=== PATIENT | male | born 1995 | race Two or more races ===

== ENCOUNTER 2017-03-10 15:20 | Emergency (ER) | payer OTHER ==
[2017-03-10] MEDS ORDERED: LORazepam 1 MG TAB ONE (15:28)
[2017-03-10] MEDS ORDERED: LORazepam 1 MG TAB PO ONE (15:37)
--- NOTE | 2017-03-10 16:58 | EDPHY ---
H & P Stated Complaint: PANIC ATTACK Time Seen by Provider: 03/10/17 15:23 HPI/ROS: Chief Complaint: Panic attack HPI: 22-year-old male with a past medical history of anxiety is presenting complaining of a panic attack today. Patient awoke feeling very anxious and has been getting progressively worse. He has been breathing fast and is getting cramping in his hands numbness around his mouth. He has had multiple episodes in the past has been seen in the emergency department before for this. He has been having increasing stressors with school. He has been prescribed Lexapro in the past but stopped taking it after 2 months because he did not like how it made him feel. This was over a year ago. He has since not followed up for any other treatments. He denies suicidal thoughts. Is not hearing voices. Denies any recent illness. No fevers or chills. No chest pain shortness of breath. He does use marijuana daily both recreationally and to treat his anxiety. ROS: 10 point Review of Systems is negative except as noted in the HPI. PMH: Anxiety Medications: None Allergies: None Social History: Positive smoking, no alcohol, daily marijuana Family History: non-contributory Physical Exam: Gen: Awake, Alert, anxious, hyperventilating, carpal pedal spasm HEENT: Nose: no rhinorrhea Eyes: PERRLA, EOMI Mouth: Moist mucosa Neck: Supple, no JVD Chest: nontender, lungs clear to auscultation Heart: S1, S2 normal, no murmur Abd: Soft, non-tender, no guarding Back: no CVA tenderness, no midline tenderness Ext: no edema, non-tender Skin: no rash Neuro: CN II-XII intact, Sensation grossly intact, Strength 5/5 in bilateral upper and lower extremities - Personal History Current Tetanus/Diphtheria Vaccine: Yes - Medical/Surgical History Hx Asthma: No Hx Chronic Respiratory Disease: No Hx Diabetes: No Hx Cardiac Disease: No Hx Renal Disease: No Hx Cirrhosis: No Hx Alcoholism: No Hx HIV/AIDS: No Hx Splenectomy or Spleen Trauma: No Other PMH: PMH: GERD. PSH: none - Social History Smoking Status: Heavy smoker Constitutional: Initial Vital Signs Temperature (C) 36.6 C 03/10/17 15:26 Heart Rate 79 03/10/17 15:26 Respiratory Rate 30 H 03/10/17 15:26 Blood Pressure 106/81 H 03/10/17 15:26 O2 Sat (%) 100 03/10/17 15:26 O2 Delivery Mode Room Air Allergies/Adverse Reactions: No Known Allergies Allergy (Verified 03/23/16 11:38) Home Medications: Medication Instructions Recorded Ondansetron Odt [Zofran Odt] 4 mg PO Q4PRN #4 tab 03/23/16 LORazepam [Ativan] 1 mg PO Q6-8PRN PRN #10 tab 07/12/16 Ondansetron Odt [Zofran Odt] 4 mg PO Q4PRN #8 tab 07/12/16 Medical Decision Making ED Course/Re-evaluation: Patient is feeling much better after Ativan. He is still adeline for safety. I have given referrals per both [facility] and [facility]. He will return for any concerns. - Data Points Medications Given: Discontinued Medications Lorazepam (Ativan) 2 mg PO ONCE ONE Stop: 03/10/17 15:38 Last Admin: 03/10/17 15:40 Dose: 2 mg Departure - Departure Disposition: Home, Routine, Self-Care Clinical Impression: Anxiety Condition: Good Instructions: Anxiety (ED) Additional Instructions: Follow up with student health or with [facility] for further treatment of your anxiety. Try to decrease your marijuana use. Referrals: [facility] [Outside] - As per Instructions [facility] [Outside] - As per Instructions
[2017-03-10 17:18] VITALS: BP 130/78; PULSE 80; RESP 14; TEMP 98.4; O2SAT 94
== END 2017-03-10 17:17 | disposition home or self-care (01) ==
DX: F41.9 Anxiety disorder, unspecified (principal); F17.200 Nicotine dependence, unspecified, uncomplicated

== ENCOUNTER 2017-05-12 10:59 | Emergency (ER) | payer OTHER ==
[2017-05-12 11:06] VITALS: TEMP 97.9
--- NOTE | 2017-05-12 11:16 | EDPHY ---
H & P Time Seen by Provider: 05/12/17 11:08 HPI/ROS: CHIEF COMPLAINT: Nausea vomiting anxiety HISTORY OF PRESENT ILLNESS: This is a 22-year-old male presenting to the emergency department with his friends. Patient states he has been using an increased amount of marijuana over the past few days due to his anxiety. Patient states starting having increased anxiety around 6 o'clock this morning after smoking marijuana then nausea vomiting since then. Patient has been seen on multiple occasions for same problem. Denies any other drugs REVIEW OF SYSTEMS: Constitutional: No fever, no chills. Eyes: No discharge. ENT: No sore throat. Cardiovascular: No chest pain, no palpitations. Respiratory: No cough, no shortness of breath. Gastrointestinal: Abdominal cramping, nausea and vomiting Genitourinary: No hematuria. Musculoskeletal: No back pain. Skin: No rashes. Neurological: No headache. Anxious Smoking Status: Heavy smoker Physical Exam: General Appearance: Alert, no distress HEENT: Pupils equal and round no pallor or injection. Mucous membranes moist. Respiratory: There are no retractions, lungs are clear to auscultation. Cardiovascular: Regular rate and rhythm. Gastrointestinal: Abdomen is soft and nontender, no masses, bowel sounds normal. No active vomiting Neurological: No focal deficits answering questions appropriately Skin: Warm and dry, no rashes. No diaphoresis Musculoskeletal: Neck is supple nontender. Extremities: symmetrical, full range of motion. Psychiatric: Patient is oriented X 3, anxious Constitutional: Initial Vital Signs Temperature (C) 36.6 C 05/12/17 10:59 Heart Rate 79 05/12/17 10:59 Respiratory Rate 26 H 05/12/17 10:59 O2 Sat (%) 92 05/12/17 10:59 O2 Delivery Mode Room Air Allergies/Adverse Reactions: No Known Allergies Allergy (Verified 03/23/16 11:38) Home Medications: Medication Instructions Recorded Ondansetron Odt [Zofran Odt] 4 mg PO Q4PRN #4 tab 03/23/16 LORazepam [Ativan] 1 mg PO Q6-8PRN PRN #10 tab 07/12/16 Ondansetron Odt [Zofran Odt] 4 mg PO Q4PRN #8 tab 07/12/16 Medical Decision Making ED Course/Re-evaluation: Discussed ED plan of care: IV normal saline, IV Zofran, IV Ativan. Reviewed previous records will re-evaluate patient. Also discussed with patient that he needs to stop smoking marijuana. Evaluation with a therapist would be beneficial for him due to his anxiety 1215: Patient re-evaluation---> no nausea vomiting, patient states he does still feeling anxious would like more Ativan 1315: Patient re-evaluation---> NAD, no nausea vomiting, decrease anxiety per patient. Patient states "I'm ready to go home" also discussed with patient the emergency department should not be utilized to control her anxiety. There are counselors and therapy which can be located at [facility] for you to utilize Differential Diagnosis: Other differential diagnosis considered but not limited to AMS due to drug intoxication, hyperemesis due to cannabinoid overuse, panic attack and gastroenteritis - Data Points Medications Given: Discontinued Medications Sodium Chloride (Ns) 1,000 mls @ 0 mls/hr IV ONCE ONE PRN Reason: Wide Open Stop: 05/12/17 11:19 Last Admin: 05/12/17 11:27 Dose: 1,000 mls Sodium Chloride (Ns) 1,000 mls @ 0 mls/hr IV ONCE ONE PRN Reason: Wide Open Stop: 05/12/17 12:08 Last Admin: 05/12/17 12:08 Dose: 1,000 mls Lorazepam (Ativan Injection) 1 mg IVP EDNOW ONE Stop: 05/12/17 11:20 Last Admin: 05/12/17 11:28 Dose: 1 mg Lorazepam (Ativan Injection) 1 mg IVP EDNOW ONE Stop: 05/12/17 12:31 Last Admin: 05/12/17 12:40 Dose: 1 mg Ondansetron HCl (Zofran) 4 mg IVP EDNOW ONE Stop: 05/12/17 11:19 Last Admin: 05/12/17 11:27 Dose: 4 mg Departure - Departure Disposition: Home, Routine, Self-Care Clinical Impression: Generalized anxiety disorder Nausea & vomiting Qualifiers: Vomiting type: unspecified Vomiting Intractability: non-intractable Qualified Code(s): R11.2 - Nausea with vomiting, unspecified Condition: Good Instructions: Generalized Anxiety Disorder (ED), Acute Nausea and Vomiting (ED) Additional Instructions: 1. I have given you numbers for [facility] follow -up with them for evaluation for anxiety 2. Also discusse the emergency department should not be utilized for your continuous anxiety issues due to marijuana 3. I would also recommend talking with your parents, use family as support system Referrals: NONE *PRIMARY CARE P,. [Primary Care Provider] - As per Instructions [facility],. [Clinic] - As per Instructions [facility] [Clinic] - As per Instructions
[2017-05-12] MEDS ORDERED: ONDANSETRON 4 MG/2 ML VIAL IVP ONE (11:18)
[2017-05-12] MEDS ORDERED: NS 1,000 ML IV ONE ×2 (11:18→12:07)
[2017-05-12] MEDS ORDERED: LORazepam 2 MG/ML INJ IVP ONE ×2 (11:19→12:30)
[2017-05-12 13:31] VITALS: BP 109/63; PULSE 58; RESP 18; O2SAT 97
== END 2017-05-12 13:30 | disposition home or self-care (01) ==
DX: F41.9 Anxiety disorder, unspecified (principal); R11.2 Nausea with vomiting, unspecified; F17.200 Nicotine dependence, unspecified, uncomplicated
CPT/HCPCS: 96374; J2060; J2405

== ENCOUNTER 2017-07-17 13:22 | Emergency (ER) | payer OTHER ==
[2017-07-17 13:28] VITALS: TEMP 98.4
--- NOTE | 2017-07-17 13:34 | EDPHY ---
H & P Stated Complaint: N/V; feels anxious and numb;hx previous episodes (see visit hx ) Time Seen by Provider: 07/17/17 13:34 - Personal History Current Tetanus Diphtheria and Acellular Pertussis (TDAP): Yes - Medical/Surgical History Hx Asthma: No Hx Chronic Respiratory Disease: No Hx Diabetes: No Hx Cardiac Disease: No Hx Renal Disease: No Hx Cirrhosis: No Hx Alcoholism: No Hx HIV/AIDS: No Hx Splenectomy or Spleen Trauma: No Other PMH: PMH: GERD. anxiety - Social History Smoking Status: Current every day smoker Constitutional: Initial Vital Signs Temperature (C) 36.9 C 07/17/17 13:24 Heart Rate 56 L 07/17/17 13:24 Respiratory Rate 24 H 07/17/17 13:24 Blood Pressure 107/63 07/17/17 13:24 O2 Sat (%) 99 07/17/17 13:24 O2 Delivery Mode Room Air Allergies/Adverse Reactions: No Known Allergies Allergy (Verified 07/17/17 13:24) Home Medications: Medication Instructions Recorded NK [No Known Home Meds] 07/17/17 Medical Decision Making ED Course/Re-evaluation: CHIEF COMPLAINT: Anxiety, nausea, vomiting HISTORY OF PRESENT ILLNESS: The patient is a 22 y/o male who complains of anxiety accompanied with nausea and vomiting since 06:30 this morning, about 8 hours ago. He has a history of vomiting associated with anxiety, and has been evaluated as recently as 2 months ago for similar symptoms. He does not have a care plan for his anxiety and has not seen a psychiatrist. He was prescribed Lexapro, which he stopped taking after several weeks because it "made him feel crazy". He denies chest pain, paresthesias, weakness, incontinence or other pertinent symptoms. REVIEW OF SYSTEMS: A 10 point review of systems was performed and is negative with the exception of the elements mentioned in the history of present illness. PHYSICAL EXAM: HR, BP, O2 Sat, RR. Temp noted General Appearance: Alert, well hydrated, appropriate, and non-toxic appearing. Head: Atraumatic without scalp tenderness or obvious injury Eyes: Pupils equal, round, reactive to light and accommodation, EOMI, no trauma , no injection. Ears: Clear bilaterally, no perforation, normal landmarks Nose: Atraumatic, no rhinorrhea, clear. Throat: Mucus membranes moist. Neck: Supple, nontender, no lymphadenopathy. Respiratory: No retractions, no distress, no wheezes, and no accessory muscle use. Lungs are clear to auscultation bilaterally. Cardiovascular: Regular rate and rhythm, no murmurs, rubs, or gallops. Good capillary refill all extremities. Gastrointestinal: Abdomen is soft, nontender, non-distended, no masses, no rebound, no guarding, no peritoneal signs. Musculoskeletal: Normal active ROM of all extremities, atraumatic. Neurological: Alert, appropriate, and interactive. Non-focal neuro. Skin: No rashes, good turgor, no nodules on palpation. Past medical history: Anxiety, GERD Past surgical history: Denies Family history: Noncontributory Social history: Student at , lives in [place], smoker. Prior medical records reviewed including ED visit on 05/12/17 for vomiting. DIFFERENTIAL DIAGNOSIS: The differential diagnosis for the patient's nausea and vomiting included but was not limited to cyclic vomiting, psychogenic causes , marijuana abuse, gastroenteritis, gastritis, appendicitis, and medication side effect. MEDICAL DECISION MAKING: The patient is a 22 y/o male presenting with an 8 hour history of worsening anxiety accompanied with nausea and vomiting. He has not managed his anxiety and denies seeing a psychiatrist. His symptoms are consistent with cyclic vomiting syndrome. Plan for basic labs, urine tox, and symptomatic management. Plan on IV, 4mg IV Zofran, 1mg IV Ativan, 40mg IV Pepcid , and labs. Reassessed patient and discussed laboratory results. Lab results were unremarkable. I recommend he follows up with [facility] to control his anxiety. He will be given a prescription of Zofran to manage his nausea. He is comfortable with this plan. - Data Points Laboratory Results: Laboratory Results 07/17/17 13:45 07/17/17 13:45 07/17/17 07/17/17 13:45 13:45 WBC 15.57 10^3/uL H 10^3/uL (3.80-9.50) RBC 5.67 10^6/uL 10^6/uL (4.40-6.38) Hgb 17.8 g/dL H g/dL (13.7-17.5) Hct 47.9 % % (40.0-51.0) MCV 84.5 fL fL (81.5-99.8) MCH 31.4 pg pg (27.9-34.1) MCHC 37.2 g/dL H g/dL (32.4-36.7) RDW 11.6 % % (11.5-15.2) Plt Count 258 10^3/uL 10^3/uL (150-400) MPV 11.0 fL fL (8.7-11.7) Neut % (Auto) 85.8 % H % (39.3-74.2) Lymph % (Auto) 9.8 % L % (15.0-45.0) Cochran % (Auto) 3.5 % L % (4.5-13.0) Eos % (Auto) 0.1 % L % (0.6-7.6) Baso % (Auto) 0.4 % % (0.3-1.7) Nucleat RBC Rel Count 0.0 % % (0.0-0.2) Absolute Neuts (auto) 13.35 10^3/uL H 10^3/uL (1.70-6.50) Absolute Lymphs (auto) 1.53 10^3/uL 10^3/uL (1.00-3.00) Absolute Monos (auto) 0.55 10^3/uL 10^3/uL (0.30-0.80) Absolute Eos (auto) 0.01 10^3/uL L 10^3/uL (0.03-0.40) Absolute Basos (auto) 0.07 10^3/uL 10^3/uL (0.02-0.10) Absolute Nucleated RBC 0.00 10^3/uL 10^3/uL (0-0.01) Immature Gran % 0.4 % % (0.0-1.1) Immature Gran # 0.06 10^3/uL 10^3/uL (0.00-0.10) Sodium 141 mEq/L mEq/L (134-144) Potassium 4.2 mEq/L mEq/L (3.5-5.2) Chloride 105 mEq/L mEq/L (97-110) Carbon Dioxide 18 mEq/l L mEq/l (22-31) Anion Gap 18 mEq/L H mEq/L (8-16) BUN 16 mg/dL mg/dL (7-23) Creatinine 1.2 mg/dL mg/dL (0.7-1.3) Estimated GFR > 60 Glucose 132 mg/dL H mg/dL (70-100) Calcium 11.4 mg/dL H mg/dL (8.5-10.4) Phosphorus 1.1 mg/dL L mg/dL (2.5-4.5) Salicylates < 1.0 mg/dL L mg/dL (2.0-20.0) Acetaminophen < 10 mcg/mL L mcg/mL (10-30) Ethyl Alcohol < 10 mg/dL mg/dL (0-10) Medications Given: Discontinued Medications Famotidine (Pepcid) 40 mg IVP EDNOW ONE Stop: 07/17/17 13:44 Last Admin: 07/17/17 13:55 Dose: 40 mg Lorazepam (Ativan Injection) 1 mg IVP EDNOW ONE Stop: 07/17/17 13:44 Last Admin: 07/17/17 13:55 Dose: 1 mg Ondansetron HCl (Zofran) 4 mg IVP EDNOW ONE Stop: 07/17/17 13:44 Last Admin: 07/17/17 13:55 Dose: 4 mg Ondansetron HCl (Zofran Odt 4 Mg Prepack#2) 1 btl TAKEHOME EDNOW ONE Stop: 07/17/17 14:31 Last Admin: 07/17/17 14:41 Dose: 1 btl Departure - Departure Disposition: Home, Routine, Self-Care Clinical Impression: Anxiety Cyclical vomiting Qualifiers: Vomiting Intractability: unspecified Nausea presence: with nausea Qualified Code(s): G43.A0 - Cyclical vomiting, not intractable Condition: Good Instructions: Acute Nausea and Vomiting (ED), Anxiety (ED) Additional Instructions: 1. Take Zofran as prescribed for your nausea and vomiting. 2. Stop smoking marijuana, this is likely contributing to your nausea and vomiting. 3. Follow up with [facility], if you would like to seek help with your anxiety. 4. Follow up with the [facility] for unimproved symptoms in the next 3-5 days. 5. Return to the ED for fever, incontinence, chest pain, or other worsening symptoms. Referrals: NONE *PRIMARY CARE P,. [Primary Care Provider] - As per Instructions [facility] [Outside] - As per Instructions [facility],. [Clinic] - As per Instructions Report Scribed for: Vahe Bell Report Scribed by: Diane Beard Date of Report: 07/17/17 Time of Report: 14:40
[2017-07-17] MEDS ORDERED: FAMOTIDINE 20 MG/2 ML SDV IVP ONE (13:43)
[2017-07-17] MEDS ORDERED: LORazepam 2 MG/ML INJ IVP ONE (13:43)
[2017-07-17] MEDS ORDERED: ONDANSETRON 4 MG/2 ML VIAL IVP ONE (13:43)
[2017-07-17 13:58] LABS: % IMMATURE GRANULYOCYTES 0.4 % (0.0-1.1); ABSOLUTE IMMATURE GRANULOCYTES 0.06 10^3/uL (0.00-0.10); ADD DIFF? NO; ADD MORPH? NO; ADD SCAN? NO; ATYPICAL LYMPHOCYTE FLAG 0 (0-99); FRAGMENT RBC FLAG 0 (0-99); HEMATOCRIT 47.9 % (40.0-51.0); HEMOGLOBIN 17.8 g/dL (13.7-17.5); LEFT SHIFT FLG 0 (0-99); LIPEMIA HEMOLYSIS FLAG 90 (0-99); MEAN CELL HEMOGLOBIN 31.4 pg (27.9-34.1); MEAN CELL HEMOGLOBIN CONCENTR. 37.2 g/dL (32.4-36.7); MEAN CELL VOLUME 84.5 fL (81.5-99.8); PLATELET CLUMPS FLAG 0 (0-99); PLATELET COUNT 258 10^3/uL (150-400); RED BLOOD CELL COUNT 5.67 10^6/uL (4.40-6.38); RED CELL DISTRIBUTION WIDTH 11.6 % (11.5-15.2)
[2017-07-17 14:16] LABS: ANION GAP 18 mEq/L (8-16); CALCIUM 11.4 mg/dL (8.5-10.4); CARBON DIOXIDE 18 mEq/l (22-31); CHLORIDE 105 mEq/L (97-110); CREATININE 1.2 mg/dL (0.7-1.3); ETHANOL SERUM < 10 mg/dL (0-10); GLOMERULAR FILTRATION RATE > 60; GLUCOSE 132 mg/dL (70-100); POTASSIUM 4.2 mEq/L (3.5-5.2); SALICYLATE < 1.0 mg/dL (2.0-20.0); SODIUM 141 mEq/L (134-144)
[2017-07-17] MEDS ORDERED: ONDANSETRON 4MG PREPACK#2 BTL TAKEHOME ONE (14:30)
[2017-07-17 14:49] VITALS: BP 122/62; PULSE 74; RESP 18; O2SAT 97
== END 2017-07-17 14:49 | disposition home or self-care (01) ==
DX: G43.A0 Cyclical vomiting, in migraine, not intractable (principal); F41.9 Anxiety disorder, unspecified; F17.200 Nicotine dependence, unspecified, uncomplicated
CPT/HCPCS: 96374; G0480; J2060; J2405

== ENCOUNTER 2018-01-30 16:36 | Emergency (ER) | payer OTHER ==
[2018-01-30 16:41] VITALS: TEMP 98.2
[2018-01-30] MEDS ORDERED: ONDANSETRON DISINTEGRATING 4 MG TAB ONE (16:46)
[2018-01-30] MEDS ORDERED: ONDANSETRON 4 MG/2 ML VIAL IVP ONE (16:48)
[2018-01-30] MEDS ORDERED: NS 1,000 ML IV ONE ×2 (16:48)
--- NOTE | 2018-01-30 16:48 | EDPHY ---
H & P Stated Complaint: N/V starting this morning Time Seen by Provider: 01/30/18 16:48 HPI/ROS: HPI: This is a 22-year-old male who presents with Chief Complaint: N/V starting this morning Location: GI Quality: Nausea vomiting Duration: Since 9:30 a.m. Signs and Symptoms: no fever, + nausea, + vomiting x5 days, no hematemesis, no blood in stool, no abdominal bloating, no diarrhea, no back pain, no urinary symptoms, no testicular/groin pain, no indigestion, no chest pain, no shortness of breath Timing: Acute, intermittent episodes Severity: Moderate Context: Patient has a history of GERD and anxiety as well as cyclical vomiting syndrome with marijuana use presents with sudden onset around 9:30 a.m. Of nausea and vomiting x5 times after smoking marijuana last night as well as this morning. He denies any fever/diarrhea/back pain/urinary symptoms. Patient has a longstanding history of anxiety with multiple ER visits for nausea and vomiting secondary to this. He was told to follow up with Psychiatry but is noncompliant knee even stopped taking his Lexapro last year. Modifying Factors: None Comment: ROS: see HPI Constitutional: No fever, no chills, no weight loss Eyes: No blurred vision Respiratory: No shortness of breath, no cough Cardiovascular: No chest pain, no palpitations Gastrointestinal: + nausea, + vomiting, no diarrhea, no hematemesis, no blood in stool Genitourinary: No dysuria, no blood in urine Extremities: No myalgias, no edema Neurologic: No weakness, no numbness Skin: No rashes, no petechiae Hematologic: No bruising, no bleeding MEDICAL/SURGICAL/SOCIAL HISTORY: Medical history: GERD, anxiety Surgical history: Denies Social history: Student. CONSTITUTIONAL: Extremely anxious, hyperventilating, uncooperative, young adult Bengali male, awake and alert, no obvious distress HEENT: Atraumatic and normocephalic, PERRL, EOMI. Tympanic membranes clear. Oropharynx clear, no exudate and moist pink mucosa. Airway patent. No lymphadenopathy. No meningismus. Cardiovascular: Normal S1/S2, regular rate, regular rhythm, without murmur rub or gallop. PULMONARY/CHEST: Symmetrical and nontender. Clear to auscultation bilaterally. Good air movement. No accessory muscle usage. ABDOMEN: Soft, nondistended, nontender, no rebound, no guarding, no peritoneal signs, no masses or organomegaly. No CVAT. EXTREMITIES: 2/2 pulses, strength 5/5, no deformities, no clubbing, no cyanosis or edema. NEUROLOGICAL: no focal neuro deficits. GCS 15. SKIN: Warm and dry, no erythema. no rash. Good capillary refill. Source: Patient, Old records Exam Limitations: No limitations - Personal History Current Tetanus/Diphtheria Vaccine: No Current Tetanus Diphtheria and Acellular Pertussis (TDAP): No - Medical/Surgical History Hx Asthma: No Hx Chronic Respiratory Disease: No Hx Diabetes: No Hx Cardiac Disease: No Hx Renal Disease: No Hx Cirrhosis: No Hx Alcoholism: No Hx HIV/AIDS: No Hx Splenectomy or Spleen Trauma: No Other PMH: PMH: GERD. anxiety - Social History Smoking Status: Current every day smoker Constitutional: Initial Vital Signs Temperature (C) 36.8 C 01/30/18 16:38 Heart Rate 87 01/30/18 16:38 Respiratory Rate 22 H 01/30/18 16:38 Blood Pressure 123/76 H 01/30/18 16:38 O2 Sat (%) 99 01/30/18 16:38 O2 Delivery Mode Room Air Allergies/Adverse Reactions: No Known Allergies Allergy (Verified 01/30/18 16:37) Home Medications: Medication Instructions Recorded Ondansetron Odt [Zofran Odt 4 mg 4 mg PO Q4 PRN #12 tab 01/30/18 (*)] Promethazine HCl [Phenergan 50mg 50 mg PO Q8 PRN #12 tablet 01/30/18 tab] Medical Decision Making - Diagnostics Imaging Results: Imaging Impressions Abdomen CT 01/30/18 17:46 Impression: 1. No source for symptoms identified. 2. Unifocal 2 cm anterior liver lesion. Recommend ultrasound for further evaluation. Results called and discussed with Patricia Paniagua, at 01/30/2018 18:23 General information for patients regarding this examination can be found at [email or web address]. If you have questions or comments about this report, please contact me at (hospital) or [phone] (cell). Abdomen Ultrasound 01/30/18 18:28 Impression: 1. No evidence of intra-abdominal pathology. 2. No sonographic correlate found for hypoattenuating geographic focus within the left hepatic lobe. ED Course/Re-evaluation: Labs, IV fluids, IV medications, CT abdomen and pelvis scan ordered 1700: Given IV Ativan 2 mg and IV Haldol 2.5 mg upon arrival due to severe panic attack and anxiety. Doubt this to be a surgical abdomen. etiology is marijuana use and anxiety. 1738: Labs reviewed; leukocytosis likely reactive. No fever. Anion gap and CO2 consistent with hyperventilation. 1745: Notified by nurse that patient is still complaining of nausea with 1 episode of vomiting. IV Haldol 2.5 mg and IV promethazine 12.5 mg ordered Called by radiologist who reports CT abdomen and pelvis scan shows as no acute finding. Liver shows possible cyst. Radiology Recommends limited ultrasound for further evaluation. Liver ultrasound shows: No sonographic correlate found for hypoattenuating geographic focus within the left hepatic lobe Reassessed patient who is calmly sleeping for the last hour. Passed p.o. Trial prior to discharge. Again patient was offered follow-up with behavioral health any adamantly refused. Given p.o. Zyprexa. Does not meet M1 hold or Detainer criteria. This patient was seen under the supervision of my secondary supervising physician. I evaluated care for this patient independently. Discussed this patient with Dr. Ross who did not see the patient. Differential Diagnosis: Abdominal pain including but not limited to appendicitis, cholecystitis, gastritis and urinary tract infection. - Data Points Laboratory Results: Laboratory Results 01/30/18 17:00 01/30/18 17:00 01/30/18 01/30/18 17:00 17:00 WBC 16.07 10^3/uL H 10^3/uL (3.80-9.50) RBC 5.81 10^6/uL 10^6/uL (4.40-6.38) Hgb 17.6 g/dL H g/dL (13.7-17.5) Hct 49.2 % % (40.0-51.0) MCV 84.7 fL fL (81.5-99.8) MCH 30.3 pg pg (27.9-34.1) MCHC 35.8 g/dL g/dL (32.4-36.7) RDW 12.5 % % (11.5-15.2) Plt Count 256 10^3/uL 10^3/uL (150-400) MPV 10.7 fL fL (8.7-11.7) Neut % (Auto) 74.5 % H % (39.3-74.2) Lymph % (Auto) 18.2 % % (15.0-45.0) [place] % (Auto) 6.0 % % (4.5-13.0) Eos % (Auto) 0.2 % L % (0.6-7.6) Baso % (Auto) 0.7 % % (0.3-1.7) Nucleat RBC Rel Count 0.0 % % (0.0-0.2) Absolute Neuts (auto) 11.95 10^3/uL H 10^3/uL (1.70-6.50) Absolute Lymphs (auto) 2.93 10^3/uL 10^3/uL (1.00-3.00) Absolute Monos (auto) 0.97 10^3/uL H 10^3/uL (0.30-0.80) Absolute Eos (auto) 0.04 10^3/uL 10^3/uL (0.03-0.40) Absolute Basos (auto) 0.11 10^3/uL H 10^3/uL (0.02-0.10) Absolute Nucleated RBC 0.00 10^3/uL 10^3/uL (0-0.01) Immature Gran % 0.4 % % (0.0-1.1) Immature Gran # 0.07 10^3/uL 10^3/uL (0.00-0.10) Sodium 143 mEq/L mEq/L (135-145) Potassium 3.8 mEq/L mEq/L (3.5-5.2) Chloride 103 mEq/L mEq/L (97-110) Carbon Dioxide 20 mEq/l L mEq/l (22-31) Anion Gap 20 mEq/L H mEq/L (8-16) BUN 12 mg/dL mg/dL (7-23) Creatinine 1.1 mg/dL mg/dL (0.7-1.3) Estimated GFR > 60 Glucose 106 mg/dL H mg/dL (70-100) Calcium 10.9 mg/dL H mg/dL (8.5-10.4) Phosphorus 1.2 mg/dL L mg/dL (2.5-4.5) Total Bilirubin 1.4 mg/dL mg/dL (0.1-1.4) Conjugated Bilirubin 0.4 mg/dL mg/dL (0.0-0.5) Unconjugated Bilirubin 1.0 mg/dL mg/dL (0.0-1.1) AST 29 IU/L IU/L (17-59) ALT 38 IU/L IU/L (21-72) Alkaline Phosphatase 98 IU/L IU/L (38-126) Total Protein 8.8 g/dL H g/dL (6.3-8.2) Albumin 5.5 g/dL H g/dL (3.5-5.0) Lipase 125 IU/L IU/L (23-300) Medications Given: Discontinued Medications Haloperidol Lactate (Haldol Injection) 2.5 mg IVP EDNOW ONE Stop: 01/30/18 17:04 Last Admin: 01/30/18 17:08 Dose: 2.5 mg Haloperidol Lactate (Haldol Injection) 2.5 mg IVP EDNOW ONE Stop: 01/30/18 17:45 Last Admin: 01/30/18 17:52 Dose: 2.5 mg Sodium Chloride (Ns) 1,000 mls @ 0 mls/hr IV EDNOW ONE; Wide Open PRN Reason: Protocol Stop: 01/30/18 16:49 Last Admin: 01/30/18 16:58 Dose: 1,000 mls Sodium Chloride (Ns) 1,000 mls @ 0 mls/hr IV EDNOW ONE; Wide Open PRN Reason: Protocol Stop: 01/30/18 16:49 Last Admin: 01/30/18 17:15 Dose: 1,000 mls Lorazepam (Ativan Injection) 2 mg IVP EDNOW ONE Stop: 01/30/18 16:50 Last Admin: 01/30/18 17:00 Dose: 2 mg Olanzapine (Zyprexa Zydis) 5 mg PO EDNOW ONE Stop: 01/30/18 19:57 Last Admin: 01/30/18 19:59 Dose: 5 mg Ondansetron HCl (Zofran) 4 mg IVP EDNOW ONE Stop: 01/30/18 16:49 Last Admin: 01/30/18 16:58 Dose: 4 mg Promethazine HCl (Phenergan) 12.5 mg IVP ONCE ONE Stop: 01/30/18 17:46 Last Admin: 01/30/18 17:51 Dose: 12.5 mg Departure - Departure Disposition: Home, Routine, Self-Care Clinical Impression: Marijuana use, Anxiety, Liver lesion Cyclical vomiting syndrome Qualifiers: Vomiting Intractability: non-intractable Nausea presence: with nausea Qualified Code(s): G43.A0 - Cyclical vomiting, not intractable Condition: Good Instructions: Cyclic Vomiting Syndrome (ED) Additional Instructions: Consume a minimum of 8-10 glasses of water or electrolyte fluid replacement drinks that include Gatorade, Powerade, Pedialyte. Eat a bland diet for the next 48 hours and then slowly advance as tolerated. Take Zofran 1 tab every 4 hours as needed for nausea, vomiting. Follow-up with primary care provider and discuss your depression/anxiety. It Would benefit you to go back on antidepressant medication. Refrain from using marijuana. Return to the Emergency Room if symptoms do not resolve in the next 48-72 hours , you spike a fever > 102 F, or experience intractable abdominal pain/nausea/ vomiting. CT abdomen and pelvis scan showed no acute intra-abdominal pathology. Unifocal 2 cm anterior liver lesion seen and ultrasound performed. Referrals: [facility],. [Clinic] - As per Instructions Girish Cortez MD [Medical Doctor] - 5-7 days, call for appt. Stand Alone Forms: School Excuse Prescriptions: Ondansetron Odt [Zofran Odt 4 mg (*)] 4 mg PO Q4 PRN #12 tab PRN Reason: Nausea/Vomiting, Use 1st Promethazine HCl [Phenergan 50mg tab] 50 mg PO Q8 PRN #12 tablet PRN Reason: Nausea/Vomiting, Use 2nd
[2018-01-30] MEDS ORDERED: LORazepam 2 MG/ML INJ IVP ONE (16:49)
[2018-01-30] MEDS ORDERED: HALOPERIDOL LACT 5 MG/ML INJ IVP ONE ×2 (17:03→17:44)
[2018-01-30] MEDS ORDERED: HALOPERIDOL LACT 5 MG/ML INJ ONE (17:05)
[2018-01-30 17:12] LABS: PLATELET COUNT 256 10^3/uL (150-400)
[2018-01-30] MEDS ORDERED: PROMETHAZINE HCL 25 MG/ML INJ IVP ONE (17:45)
[2018-01-30] MEDS ORDERED: IOPAMIDOL (ISOVUE-300) 100 ML BTL ONE (17:48)
[2018-01-30 19:38] VITALS: BP 104/58; PULSE 72; RESP 18; O2SAT 100
[2018-01-30] MEDS ORDERED: OLANZapine DISINTEGR 5 MG TAB PO ONE (19:56)
== END 2018-01-30 20:19 | disposition home or self-care (01) ==
DX: G43.A0 Cyclical vomiting, in migraine, not intractable (principal); F41.9 Anxiety disorder, unspecified; K76.9 Liver disease, unspecified; F12.90 Cannabis use, unspecified, uncomplicated; E86.9 Volume depletion, unspecified; F17.200 Nicotine dependence, unspecified, uncomplicated
CPT/HCPCS: 96374; J1630; J2060; J2405; J2550; Q9967